=== PATIENT | male | born 1990 | race American Indian/Alaskan Native ===

== ENCOUNTER 2017-08-23 16:24 | Emergency (ER) | payer SELFPAY ==
[2017-08-23 16:30] VITALS: BP 151/86
--- NOTE | 2017-08-23 19:34 | Emergency Department Report ---
Chief Complaint: Urogenital-Male Stated Complaint: STD EXPOSURE Time Seen by Provider: 08/23/17 19:15 - HPI History of Present Illness: Patient reported that he was exposed to STD from his girlfriend and reported that she told him that she was treated for gonorrhea. He denies any penile discharge, burning. Denies any rash or lesions to penis area. He reported he has a rash to his arm for a week. Denies any pain. Denies any fever or chills. Denies any abdominal or back pain. Denies any numbness or tingling to extremities. Denies any sore throat or swelling of tongue or difficulty breathing. - ROS Review of Systems: All systems are negative unless stated in HPI above - Exam Vital Signs: Vital Signs 08/23/17 16:27 Temperature 98.1 F Pulse Rate 80 Respiratory 18 Rate Blood Pressure 151/86 O2 Sat by Pulse 99 Oximetry Physical Exam: Gen.: This is a 27-year-old male who nourished. In no acute distress. Abdomen: Soft nontender to palpate. Normal bowel sounds in all quadrants and no CVA tenderness CV: S1-S2 regular rhythm Skin: Dry and intact and no rash and no lesions MSE screening note: Focused history and physical exam performed. Due to findings the following was ordered: She referred for [facility] for nonemergent problems ED Medical Decision Making - Medical Decision Making ED Course: I saw patient will complain of STD exposure without any symptoms. He complains of skin rash was physical findings without any skin rash. I discussed the patient that I will refer him to [facility] for further evaluation and treatment of concern for STD without any symptoms and complaining of rash without any physical findings or redness. He voiced understanding and discharged home with discharge with information for [facility] . Patient given address and phone number for [facility] ED Disposition for MSE Clinical Impression: Concern about STD in male without diagnosis Disposition: Z-07 MED SCREENING EXAM-LEFT Is pt being admited?: No Does the pt Need Aspirin: No Condition: Stable Referrals: PRIMARY CARE, [Primary Care Provider] - 3-5 Days
== END 2017-08-23 19:30 | disposition left against medical advice (07) ==
LOC: ED 16:24
DX: Z20.2 Contact with and (suspected) exposure to infections with a predominantly sexual mode of transmission (principal); Z88.2 Allergy status to sulfonamides
CPT/HCPCS: 99281